=== PATIENT | female | born 1950 | race Caucasian/White ===

== ENCOUNTER 2025-08-27 12:15 | Inpatient (IN) | payer MEDICARE ==
[~2025-08-27] VITALS: Ht 162.6 cm; Wt 51.3 kg
[2025-08-27 12:51] LABS: PLATELET COUNT (AUTO) 159 K/uL (150-450); RED BLOOD CELL COUNT(AUTO) 4.64 MIL/uL (4.0-5.2); RED CELL DISTRIBUTION WIDTH 14.3 % (11.5-15.0); WHITE BLOOD COUNT (AUTO) 5.2 K/uL (4.3-11.0)
[2025-08-27 13:11] LABS: CALCIUM, SERUM 9.3 mg/dL (8.5-10.1); CREATININE 1.2 mg/dL (0.6-1.3); SODIUM SERUM 142 mmol/L (136-145); UREA NITROGEN, BLOOD 29 mg/dL (7-18)
[2025-08-27 13:22] LABS: ASPARTATE AMINOTRANSFERASE 23 U/L (15-37); NT-PRO BNP 384 pg/mL (0-125); TOTAL PROTEIN, SERUM 7.2 g/dL (6.4-8.2)
[2025-08-27] MEDS ORDERED: LISI-768 PO (13:27)
[2025-08-27] MEDS ORDERED: ATOR40TA PO (13:27)
[2025-08-27] MEDS ORDERED: Z GUARD REMEDY 4 OZ OINT TP PRN (14:00)
[2025-08-27] MEDS ORDERED: ACETAMINOPHEN 325 MG TABLET PO PRN (14:00)
[2025-08-27] MEDS ORDERED: MAG HYDROX/AL HYDROX/SIMETH 30 ML UDC PO PRN (14:00)
[2025-08-27] MEDS ORDERED: ONDANSETRON HCL/PF 4 MG/2 ML VIAL IVP PRN (14:00)
[2025-08-27] MEDS ORDERED: MAGNESIUM HYDROXIDE 30 ML UDC PO PRN (14:00)
[2025-08-27 16:00] VITALS: BP 141/82; TEMP 97.5; O2SAT 98
[2025-08-27 16:02] VITALS: BP 156/87; TEMP 97.5; O2SAT 98
[2025-08-27 16:04] VITALS: BP 141/82; TEMP 97.5; O2SAT 98
[2025-08-27 16:05] VITALS: BP 140/93; TEMP 97.5; O2SAT 99
[2025-08-27] MEDS: LISINOPRIL (5MG) 5 MG TABLET PO SCH (17:27)
[2025-08-27] MEDS: IV NS 0.9% 1,000 ML IV PRN (17:40)
[2025-08-27 20:00] VITALS: BP_SYST 149; BP_SYST 159; BP_SYST 166; BP_DIAS 77; BP_DIAS 86; BP_DIAS 90; TEMP 98.1; O2SAT 98
[2025-08-27] MEDS: ATORVASTATIN 40 MG TABLET PO SCH (21:14)
[2025-08-28] VITALS: BP 148/76; TEMP 97.9; O2SAT 97
[2025-08-28 00:30] VITALS: BP 148/76; TEMP 97.9; O2SAT 97
[2025-08-28 04:00] VITALS: BP 167/91; TEMP 98.1; O2SAT 99
[2025-08-28 06:14] LABS: PLATELET COUNT (AUTO) 135 K/uL (150-450); RED BLOOD CELL COUNT(AUTO) 4.43 MIL/uL (4.0-5.2); RED CELL DISTRIBUTION WIDTH 14.2 % (11.5-15.0); WHITE BLOOD COUNT (AUTO) 4.4 K/uL (4.3-11.0)
[2025-08-28 07:09] LABS: CALCIUM, SERUM 8.7 mg/dL (8.5-10.1); CREATININE 0.8 mg/dL (0.6-1.3); PHOSPHORUS 3.3 mg/dL (2.5-4.9); SODIUM SERUM 145.0 mmol/L (136-145); UREA NITROGEN, BLOOD 21.0 mg/dL (7-18)
[2025-08-28 08:00] VITALS: BP 163/79; TEMP 97.5; O2SAT 98
[2025-08-28 09:00] VITALS: BP 148/75
== END 2025-08-28 11:36 | disposition home or self-care (01) | DRG 312 ==
LOC: ER 12:20 → TELE 13:53
PROVIDERS: ADMIT Internal Medicine; ATTEND Internal Medicine
DX: R55 Syncope and collapse (principal); D69.6 Thrombocytopenia, unspecified; I10 Essential (primary) hypertension; I70.0 Atherosclerosis of aorta; I34.81 Nonrheumatic mitral (valve) annulus calcification; G43.909 Migraine, unspecified, not intractable, without status migrainosus; M19.90 Unspecified osteoarthritis, unspecified site; Z79.899 Other long term (current) drug therapy; R79.89 Other specified abnormal findings of blood chemistry
CPT/HCPCS: 36415; 71045-TC; 80048-TC; 80076-TC; 83735-TC; 83880; 84100-TC; 84484-TC; 85025-TC; 93307-TC; A4223; G0378; J7030